=== PATIENT | female | born 1975 | race Caucasian/White ===

== ENCOUNTER 2017-10-19 06:33 | Day surgery (SDC) | payer BC, OTHER ==
[~2017-10-19 06:33] MED LIST: Acetaminophen 500 MG Tab PO ONE; Scopolamine 1.5 MG Transdermal Patch TRDERM SCH
[2017-10-19] MEDS ORDERED: Dextrose 5%-Lactated Ringers 1,000 ML IV SCH (07:00)
[2017-10-19] MEDS ORDERED: Propofol 200 MG/20 ML SDV ONE ×2 (07:23→08:28)
[2017-10-19] MEDS ORDERED: fentaNYL 100 MCG/2 ML SDV ONE ×2 (07:23→09:03)
[2017-10-19] MEDS ORDERED: Midazolam 1 MG/ML 2 ML SDV ONE (07:23)
[2017-10-19] MEDS: Bupivacaine 0.5% 50 ML MDV ONE ×2 (07:38→08:34)
[2017-10-19] MEDS: Lidocaine 1% with EPINEPHrine 1:100,000 50 ML MDV ONE ×2 (07:39→08:34)
[2017-10-19] MEDS ORDERED: Bacitracin Oint 1 GM U/D Packet ONE (07:47)
[2017-10-19] MEDS ORDERED: Meropenem 500 MG in Premix Bag 1 BAG IV ONE (08:00)
[2017-10-19] MEDS ORDERED: Meropenem 500 MG in Sodium Chloride 0.9% 50 ML IV ONE (08:00)
--- NOTE | 2017-10-25 09:05 | OR ---
DATE OF PROCEDURE: 10/19/2017 PREOPERATIVE DIAGNOSES: 1. Bilateral anterior thigh lipomas. 2. Hidradenitis suppurativa involving left inguinal area. OPERATIVE PROCEDURE: 1. Excision of lipoma, right anterior thigh (51019). 2. Excision of lipoma, left anterior thigh (81343). 3. Excision of hidradenitis suppurativa, left inguinal area (41485). ANESTHESIA: Local plus IV sedation. [employer] SUPERVISOR: Jennifer Vu MS-3. INDICATION FOR PROCEDURE: The patient presents with symptomatic lipomas in both anterior thighs, these were subcutaneous in location causing some gradual increased discomfort. The patient also has an active area of hidradenitis suppurativa in the left inguinal area. Plan is to proceed with excision of the three areas. The lipomas will obviously be excised first and dressed, after which the contaminated area of the hidradenitis suppurativa would be excised. Potential risks of procedure including bleeding, infection, recurrence of the lipoma and such were reviewed, and the patient wishes to proceed. DETAILS OF PROCEDURE: The patient was taken to the operating room and placed in the supine position. The areas of concern had been marked out preoperatively. Both thighs were then anesthetized with 1% lidocaine mixed with Marcaine. In each case, a transverse incision over the palpable mass was then made and carried down through the skin and subcutaneous tissue. The lipoma in each case was then mobilized upward and delivered in an intact manner. The lipoma on the right side measured 1.3 cm and the left sided lipoma 1.2 cm. Both sites were then closed with some 4-0 Vicryl stitch deep and 5-0 Vicryl subcuticular stitch. Steri-Strips were then applied. Attention was then taken to the hidradenitis. This was similarly anesthetized, and an elliptical incision over the area of active hidradenitis more or less in line with the inguinal crease was made and carried down through the skin and subcutaneous tissue, and the area of hidradenitis was then removed intact without entering any point of infected tissue. The incision then closed with some 4-0 Vicryl stitch deep and then a 5-0 Prolene skin stitch. Dressing was applied, and the patient was taken to the recovery room in satisfactory condition. There were no evident complications. Christo Robins MD /[id number]
== END 2017-10-19 10:08 | disposition home or self-care (01) ==
LOC: JP.SDS 06:33
PROVIDERS: ATTEND Surgery
DX: D17.24 Benign lipomatous neoplasm of skin and subcutaneous tissue of left leg (principal); D17.23 Benign lipomatous neoplasm of skin and subcutaneous tissue of right leg; L02.214 Cutaneous abscess of groin; F32.9 Major depressive disorder, single episode, unspecified; Z88.2 Allergy status to sulfonamides
CPT/HCPCS: 11462; 27327; 88304; A9270; J2185; J2250; J2704; J3010; J7042; J7050

== ENCOUNTER 2017-12-07 07:27 | Day surgery (SDC) | payer BC ==
[2017-12-07] MEDS ORDERED: Dextrose 5%-Lactated Ringers 1,000 ML IV SCH (08:00)
[2017-12-07] MEDS ORDERED: Bupivacaine 0.5%/EPINEPHrine 1:200,000 50 ML MDV ONE (08:24)
[2017-12-07] MEDS ORDERED: Midazolam 1 MG/ML 2 ML SDV ONE (08:25)
[2017-12-07] MEDS ORDERED: Propofol 200 MG/20 ML SDV ONE ×2 (08:25→09:11)
[2017-12-07] MEDS ORDERED: fentaNYL 100 MCG/2 ML SDV ONE (08:25)
[2017-12-07] MEDS ORDERED: Ondansetron 4 MG/2 ML SDV IVPUSH ONE ×2 (09:24→11:20)
[2017-12-07] MEDS ORDERED: Acetaminophen/HYDROcodone 325-5 MG Tab PO PRN (10:05)
[2017-12-07] MEDS ORDERED: Ketorolac 30 MG/ML SDV IVPUSH ONE (12:45)
== END 2017-12-07 13:29 | disposition home or self-care (01) ==
LOC: JP.SDS 07:27
PROVIDERS: ATTEND Obstetrics & Gynecology
DX: N84.0 Polyp of corpus uteri (principal); Z88.2 Allergy status to sulfonamides; Z90.49 Acquired absence of other specified parts of digestive tract; Z98.890 Other specified postprocedural states
CPT/HCPCS: 36415; 58563; 81025; 86850; 86900; 86901; 88305; A9270; J1885; J2250; J2405; J2704; J3010; J7042